=== PATIENT | female | born 1970 | race Caucasian/White ===

== ENCOUNTER 2016-12-26 07:35 | Day surgery (SDC) | payer MEDICAID ==
[2016-12-23 14:49] VITALS: BMI 21.5
[2016-12-26] MEDS: LACTATED RINGERS 1,000 ML IV SCH ×2 (07:45→08:22)
[2016-12-26] MEDS ORDERED: LIDOCAINE 1% 20 ML VIAL (10MG/ML) FOR IV START INTRADERMA ONE (07:45)
[2016-12-26 07:51] VITALS: TEMP 97.3
[2016-12-26] MEDS ORDERED: PROPOFOL 10 MG/ML 20 ML VIAL IV ONE (08:23)
[2016-12-26] MEDS ORDERED: MIDAZOLAM 2 MG/2 ML VIAL ONE (08:23)
[2016-12-26] MEDS ORDERED: fentaNYL (PF) 50 MCG/ML 2 ML AMP ONE (08:23)
--- NOTE | 2016-12-26 08:37 | P.PCN ---
Date of Procedure: 12/26/16 Procedure(s) Performed: BRIEF HISTORY: Patient is a 46-year-old pleasant white female, scheduled for an elective colonoscopy as a part of evaluation of prior history of colon polyps. PROCEDURE PERFORMED: Colonoscopy. PREOPERATIVE DIAGNOSIS: History of colon polyps. IV sedation per Anesthesia. PROCEDURE: After informed consent was obtained, the patient, was brought into the endoscopy unit. IV conscious sedation was administered by Anesthesia under continuous monitoring. Digital rectal examination was normal. Initially the Olympus CF-160 flexible video colonoscope was then inserted in the rectum, gradually advanced into the cecum without any difficulty. Careful examination was performed as the scope was gradually being withdrawn. Ileocecal valve and the appendiceal orifice were visualized and appeared normal. Prep was excellent. Mucosa of the cecum, ascending colon, transverse colon, descending colon, sigmoid colon, and rectum appeared normal. Retroflexion was performed in the rectum and no lesions were seen. The patient tolerated the procedure well. IMPRESSION: Normal-appearing colon from rectum to cecum with no evidence of colitis or colorectal neoplasia . RECOMMENDATIONS: Findings of this examination were discussed with the patient as well as her family. She was advised to have a repeat surveillance colonoscopy in 5 years.
[2016-12-26 09:00] VITALS: BP 140/76; PULSE 72; RESP 18
== END 2016-12-26 09:52 | disposition home or self-care (01) ==
LOC: ORWHC2ENDO 07:35
PROVIDERS: ATTEND Internal Medicine Gastroenterology
DX: Z12.11 Encounter for screening for malignant neoplasm of colon (principal); Z86.010 Personal history of colon polyps; F39 Unspecified mood [affective] disorder; Z79.899 Other long term (current) drug therapy
CPT/HCPCS: 81025; J2250; J3010; J2704; G0105

== ENCOUNTER → 2016-12-30 | Outpatient (CLI) | payer MEDICAID ==
--- NOTE | 2016-12-30 16:51 | CT ---
EXAMINATION TYPE: CT abdomen pelvis wo con DATE OF EXAM: 12/30/2016 11:36 AM COMPARISON: NONE INDICATION: Bilateral flank pain, microscopic hematuria DLP: 578 mGycm, Automated exposure control for dose reduction was used. CONTRAST: 0 mL of Omnipaque 300. Study performed without Oral Contrast TECHNIQUE: Axial images were obtained from above the diaphragm to the pubic rami in the axial plane a t 5 mm thick sections. Reconstructed images are reviewed on the computer in the coronal plane. FINDINGS: Limited CT sections are obtained the lung bases. The lung bases are clear. CT ABDOMEN: Liver: Normal Spleen: Normal Pancreas: Normal Adrenal glands: The adrenal glands are normal. Gallbladder: Normal Kidneys: No masses are evident. No hydronephrosis is present. No cysts are present. Aorta: Vascular calcification is within the aorta. Inferior vena cava: Normal. CT PELVIS: Loops of bowel within the abdomen and pelvis are normal. Fecal debris is within the colon. Appendix: Not identified Urinary bladder: Normal. Genitourinary structures: Uterus appears normal. Adnexal regions appear within normal limits. Osseous structures: No suspicious lytic or sclerotic lesions. IMPRESSIONS: 1. Unremarkable CT abdomen and pelvis. 2. No renal or ureteral stones are evident.
== END | disposition home or self-care (01) ==
LOC: RADCTMAIN 11:20
PROVIDERS: ATTEND Family Medicine
DX: R10.9 Unspecified abdominal pain (principal)
CPT/HCPCS: 74176

== ENCOUNTER → 2017-06-19 | Outpatient (CLI) | payer MEDICAID ==
--- NOTE | 2017-06-19 08:43 | MM ---
Reason for exam: additional evaluation requested from prior study. Last mammogram was performed 1 year and 8 months ago. History: Benign MG stereo VAD BX RT of the right breast, October 24, 2015. Physical Findings: Nurse did not find any significant physical abnormalities on exam. MG 3D Diag Mammo W/Cad JUAN FRANCISCO Bilateral CC and MLO view(s) were taken. Prior study comparison: October 16, 2015, right breast MG work up mamm w CAD RT. October 09, 2015, bilateral MG screening mammo w CAD. The breast tissue is heterogeneously dense. This may lower the sensitivity of mammography. Right scattered and stable grouped calcifications, post biopsy change. These results were verbally communicated with the patient and result sheet given to the patient on 06/19/17. ASSESSMENT: Benign, BI-RAD 2 RECOMMENDATION: Routine screening mammogram of both breasts in 1 year. Manage on a clinical basis with regard to chronic breast pain.
== END | disposition home or self-care (01) ==
LOC: RADMAMWWP 07:26
PROVIDERS: ATTEND Obstetrics & Gynecology
DX: R92.8 Other abnormal and inconclusive findings on diagnostic imaging of breast (principal)
CPT/HCPCS: G0204; G0279

== ENCOUNTER → 2019-02-17 | Outpatient (CLI) | payer MEDICAID ==
--- NOTE | 2019-02-17 13:38 | CT ---
EXAMINATION TYPE: CT iac w con DATE OF EXAM: 02/17/2019 COMPARISON: None HISTORY: 48-year-old female left ear and mastoid region pain for 3 days, unspecified Mastoiditis CT DLP: 150 mGycm Automated exposure control for dose reduction was used. TECHNIQUE: Contiguous high-resolution axial scanning of the temporal bones performed with IV Contras t, patient injected with 100 mL of Isovue 300. Coronal reformatted images obtained. FINDINGS: There is no abnormality of visualized intracranial structures by thin section postcontrast technique. Resection changes of the bilateral mastoid air cells demonstrated. There is a nodular 7 mm area of so ft tissue density along the posterior proximal resection margin on the left, refer to axial image 42. The mastoid process resection seems to be contiguous with the external auditory canal. The left middle ear cavity is pneumatized with visualization of the normal middle ear ossicles. There is some soft tissue thickening in the region of the right middle ear cavity along the posterior tympanum and loss of the normal scutum. There is no abnormal opacification of the residual left mastoid air cells. The adjacent dural venous sinus remains well opacified. Rightward nasal septal deviation. Reformatted images confirm above findings. IMPRESSION: 1. Postresection changes extending into the bilateral mastoid processes. The resection is contiguous with the external auditory canals on both sides. There may be slight asymmetric soft tissue thickeni ng of the ear overlying. Query any signs of cellulitis. 2. 7 mm nodular soft tissue density along the posterior proximal resection margin on the left likely representing some accumulated debris. Clinically correlate. 3. No abnormal opacification of the few residual left-sided mastoid air cells. The left middle ear ca vity remains pneumatized. 4. Chronic erosive changes within the right middle ear cavity with loss of the normal middle ear ossi cles. There is some mild soft tissue thickening along the posterior mesotympanum that could represent scar/granulation tissue. Debris or cholesteatoma are other considerations.
== END | disposition home or self-care (01) ==
LOC: RADCTMAIN 12:35
PROVIDERS: ATTEND Family Medicine
DX: H74.8X2 Other specified disorders of left middle ear and mastoid (principal); Z98.890 Other specified postprocedural states
CPT/HCPCS: 70481; Q9967

== ENCOUNTER → 2021-01-25 | Outpatient (CLI) | payer MEDICAID ==
--- NOTE | 2021-01-28 10:43 | MM ---
Reason for exam: screening (asymptomatic). Last mammogram was performed 3 years and 7 months ago. History: Patient is postmenopausal. Benign MG stereo VAD BX RT of the right breast, October 24, 2015. Physical Findings: A clinical breast exam by your physician is recommended on an annual basis and results should be correlated with mammographic findings. MG Screening Mammo w CAD Bilateral CC and MLO view(s) were taken. Prior study comparison: June 19, 2017, bilateral MG 3d diag mammo w/cad [facility]. October 16, 2015, right breast MG work up mamm w CAD RT. The breast tissue is heterogeneously dense. This may lower the sensitivity of mammography. Stable benign calcifications. There is no discrete abnormality. No significant changes when compared with prior studies. ASSESSMENT: Benign, BI-RAD 2 RECOMMENDATION: Routine screening mammogram of both breasts in 1 year.
== END | disposition home or self-care (01) ==
LOC: RADMAMWWP 09:58
PROVIDERS: ATTEND Obstetrics & Gynecology
DX: Z12.31 Encounter for screening mammogram for malignant neoplasm of breast (principal)
CPT/HCPCS: 77067

== ENCOUNTER → 2021-07-31 | Outpatient (CLI) | payer MEDICAID, OTHER | END | disposition home or self-care (01) | LOC: LABWHC1 09:06 | PROVIDERS: ATTEND Emergency Medicine | DX: Z20.822 Contact with and (suspected) exposure to COVID-19 (principal) | CPT/HCPCS: 87635 ==

== ENCOUNTER → 2021-08-01 | Outpatient (CLI) | payer MEDICAID, OTHER | END | disposition home or self-care (01) | LOC: LABWHC1 09:10 | PROVIDERS: ATTEND Emergency Medicine | DX: Z20.822 Contact with and (suspected) exposure to COVID-19 (principal) | CPT/HCPCS: 87635 ==

== ENCOUNTER → 2021-11-22 | Outpatient (CLI) | payer MEDICAID ==
--- NOTE | 2021-11-22 14:24 | XR ---
EXAMINATION TYPE: XR ankle complete LT DATE OF EXAM: 11/22/2021 COMPARISON: None HISTORY: Pain left heel since May TECHNIQUE: 3 view left ankle FINDINGS: Ankle mortise is intact. Soft tissues are normal. No acute fracture or dislocation is evide nt. No significant spurring of the calcaneus is evident. The calcaneus appears intact. Boehler's angl e is preserved. Follow up exams can be performed 7-10 days from acute trauma for continued pain. IMPRESSION: 1. Normal three-view left ankle.
--- NOTE | 2021-11-22 14:26 | XR ---
EXAMINATION TYPE: XR foot complete LT DATE OF EXAM: 11/22/2021 COMPARISON: Left ankle same date HISTORY: Left heel pain TECHNIQUE: 3 view left foot FINDINGS: No acute fracture or dislocation is evident. Soft tissues appear normal. Joint spaces are p reserved. Some varus deformity of the distal fourth digit is present. IMPRESSION: 1. No acute osseous abnormality.
== END | disposition home or self-care (01) ==
LOC: RADXRMAIN 13:47
PROVIDERS: ATTEND Family Medicine
DX: M72.2 Plantar fascial fibromatosis (principal)

== ENCOUNTER → 2021-11-27 | Outpatient (CLI) | payer MEDICAID ==
[2021-11-27 12:15] LABS: HDL Cholesterol 57.4 mg/dL (40.00-60.00); Triglycerides 49.7 mg/dL (0.00-149.00)
[2021-11-27 12:25] LABS: Chol/HDL Ratio 3.26 Ratio
== END | disposition home or self-care (01) ==
LOC: LABWHC1 07:33
PROVIDERS: ATTEND Nurse Practitioner Family
DX: E78.5 Hyperlipidemia, unspecified (principal); E55.9 Vitamin D deficiency, unspecified
CPT/HCPCS: 36415; 80061; 82306; 83721

== ENCOUNTER 2022-10-31 07:30 | Day surgery (SDC) | payer MEDICAID ==
[2022-10-30 09:34] VITALS: BMI 21.9
[~2022-10-31 07:30] MED LIST: LIDOCAINE 1% (10MG/ML) FOR IV START INTRADERMA PRN
[2022-10-31 07:55] VITALS: TEMP 97.2
[2022-10-31] MEDS: LACTATED RINGERS 1,000 ML IV SCH ×2 (08:11→08:48)
[2022-10-31] MEDS ORDERED: LIDOCAINE 2% INJ 20 MG/ML (2 ML VIAL) ONE (08:49)
[2022-10-31] MEDS ORDERED: PROPOFOL 10 MG/ML 20 ML VIAL IV ONE (08:49)
--- NOTE | 2022-10-31 09:06 | P.PCN ---
Date of Procedure: 10/31/22 Procedure(s) Performed: BRIEF HISTORY: Patient is a 52-year-old pleasant white female scheduled for an elective colonoscopy as a part of screening for colon cancer. Her mother was diagnosed with colon cancer at age 58. PROCEDURE PERFORMED: Colonoscopy. PREOPERATIVE DIAGNOSIS: Screening for colon cancer and family history of colon cancer. IV sedation per Anesthesia. PROCEDURE: After informed consent was obtained, the patient, was brought into the endoscopy unit. IV sedation was administered by Anesthesia under continuous monitoring. Digital rectal examination was normal. Initially the Olympus CF-160 flexible video colonoscope was then inserted in the rectum, gradually advanced into the cecum without any difficulty. Careful examination was performed as the scope was gradually being withdrawn. Ileocecal valve and the appendiceal orifice were visualized and appeared normal. Prep was excellent. Mucosa of the cecum, ascending colon, transverse colon, descending colon, sigmoid colon, and rectum appeared normal. Retroflexion was performed in the rectum and no lesions were seen. The patient tolerated the procedure well. IMPRESSION: Normal-appearing colon from rectum to cecum with no evidence of colorectal neoplasia. RECOMMENDATIONS: Findings of this examination were discussed with the patient as well as a family. She was advised to have a repeat screening colonoscopy every 5 years because of the family history of colon cancer..
[2022-10-31 09:13] VITALS: PULSE 65
[2022-10-31 09:47] VITALS: BP 132/76; RESP 16
== END 2022-10-31 10:00 | disposition home or self-care (01) ==
LOC: ORWHC2ENDO 07:30
PROVIDERS: ATTEND Internal Medicine Gastroenterology
DX: Z12.11 Encounter for screening for malignant neoplasm of colon (principal); Z80.0 Family history of malignant neoplasm of digestive organs; Z79.899 Other long term (current) drug therapy; T75.3XXD Motion sickness, subsequent encounter
CPT/HCPCS: 45378; J2704; J2001

== ENCOUNTER → 2024-05-11 | Outpatient (CLI) | payer BC ==
[2024-05-11 10:45] LABS: Basophils # (A) 0.04 X 10*3/uL (0.00-0.10); Eosinophils # (A) 0.29 X 10*3/uL (0.04-0.35); Eosinophils % (A) 7.3 %; HCT 37.4 % (37.2-46.3); HGB 12.5 g/dL (12.0-15.0); Lymphocytes # (A) 1.66 X 10*3/uL (0.90-5.00); Lymphocytes % (A) 41.9 %; MCH 30.6 pg (27.0-32.0); MCHC 33.4 g/dL (32.0-37.0); MCV 91.7 FL (80.0-97.0); Mean Platelet Volume 10.4 FL (9.5-12.2); Monocytes # (A) 0.37 X 10*3/uL (0.20-1.00); Monocytes % (A) 9.3 %; NRBC Per 100 WBC 0 X 10*3/uL (0.00-0.01); Neutrophils # (A) 1.58 X 10*3/uL (1.80-7.70); Platelet Count 273 X 10*3/uL (140-440); RBC 4.08 X 10*6/uL (4.10-5.20); RDW 12.2 % (11.5-14.5); WBC 3.96 X 10*3/uL (4.50-10.00)
[2024-05-11 10:57] LABS: Erythrocyte Sedimentation Rate 5 mm/Hr (0-30)
[2024-05-11 11:13] LABS: C Reactive Protein <0.30 mg/dL (0.00-0.80); Chol/HDL Ratio 3.77 Ratio
[2024-05-11 11:14] LABS: ALT 28 U/L (8-44); AST 31 U/L (13-35); Albumin 4.3 g/dL (3.8-4.9); Albumin/Globulin Ratio 2.15 Ratio (1.60-3.17); Alkaline Phosphatase 88 U/L (41-126); BUN/Creat Ratio 18.62 Ratio (12.00-20.00); Blood Urea Nitrogen 14.9 mg/dL (9.0-27.0); Calcium 9.2 mg/dL (8.7-10.3); Carbon Dioxide 26.1 mmol/L (21.6-31.8); Chloride 102 mmol/L (96-109); Glucose 88 mg/dL (70-110); LDL Cholesterol,Calculated 104.2 mg/dL (0.0-131.0); Potassium 4.6 mmol/L (3.5-5.5); Rheumatoid Factor, Qnt <15 IU/mL (0-15); Sodium 140 mmol/L (135-145); Total Bilirubin 0.7 mg/dL (0.3-1.2); Total Protein 6.3 g/dL (6.2-8.2)
== END | disposition home or self-care (01) ==
LOC: LABWHC1 07:09
PROVIDERS: ATTEND Family Medicine
DX: M25.50 Pain in unspecified joint (principal)
CPT/HCPCS: 36415; 80053; 80061; 82306; 84443; 85025; 85652; 86038; 86140; 86431

== ENCOUNTER → 2024-10-03 | Outpatient (CLI) | payer BC ==
--- NOTE | 2024-10-03 19:44 | MM ---
Reason for Exam: Screening (asymptomatic). Last mammogram was performed 3 year(s) and 8 month(s) ago. Patient History: Menarche at age 14. First Full-Term at age 31. Late child-bearing (after 31). Postmenopausal. Patient has history of breast feeding. 10/24/2015, Benign Core Biopsy on the right side. Risk Values: Kimber 5 year model risk: 1.8%. NCI Lifetime model risk: 13.5%. Prior Study Comparison: 10/16/2015 Right Diagnostic Mammogram, [facility]. 06/19/2017 Bilateral Diagnostic Mammogram, [facility]. 01/25/2021 Bilateral Screening Mammogram, [facility]. Tissue Density: The breasts are heterogeneously dense, which may obscure small masses. Findings: Analyzed By CAD. The pattern is symmetrical. Surgical clips are within the right breast. No suspicious groups of microcalcifications, spiculated or lobular masses, architectural distortion or other secondary signs of malignancy are mammographically apparent. Overall Assessment: Benign, BI-RAD 2 Management: Screening Mammogram of both breasts in 1 year. A negative mammogram report should not preclude additional follow up of suspicious palpable abnormalities. Patient should continue monthly self breast exam. A clinical breast exam by your physician is recommended on an annual basis and results should be correlated with mammographic findings. Note on Kimber scores and lifetime risk: 1. A Kimber score greater than 3% is considered moderate risk. If this is the case, consider specialist referral to assess eligibility for a risk reducing agent. 2. If overall lifetime risk for the development of breast cancer is 20% or higher, the patient may qualify for future screening with alternating mammogram and breast MRI. [facility], , 10/03/2024 7:41 PM. Electronically signed and approved by: Jason Rutledge D.O. Radiologis
== END | disposition home or self-care (01) ==
LOC: RADMAMWWP 15:37
PROVIDERS: ATTEND Obstetrics & Gynecology Obstetrics
DX: Z12.31 Encounter for screening mammogram for malignant neoplasm of breast (principal); R92.333 Mammographic heterogeneous density, bilateral breasts; Z78.0 Asymptomatic menopausal state
CPT/HCPCS: 77067